=== PATIENT | female | born 1990 | race Two or more races ===

== ENCOUNTER 2019-10-08 10:01 | Emergency (ER) | payer MEDICAID, OTHER ==
[~2019-10-08] VITALS: Ht 162.6 cm; Wt 118.2 kg
[~2019-10-08 10:01] MED LIST: None per pt
[2019-10-08 10:04] VITALS: BP 143/96
== END 2019-10-08 10:24 | disposition home or self-care (01) ==
LOC: ED 10:18
DX: G51.0 Bell's palsy (principal); R53.1 Weakness
CPT/HCPCS: 99283